=== PATIENT | male | born 2000 | race Two or more races ===

== ENCOUNTER → 2019-10-03 | Emergency (ER) | payer OTHER ==
[~2019-10-03] VITALS: Ht 167.6 cm; Wt 77.1 kg
[~2019-10-03] MED LIST: INTESTINEX680 M1 PO; LEVSIN/SL0.125 MG SL; ZOFRAN4 MG PO
== END | disposition home or self-care (01) ==
LOC: ER 00:56
DX: K52.9 Noninfective gastroenteritis and colitis, unspecified (principal)

== ENCOUNTER 2021-09-17 08:59 | Emergency (ER) | payer OTHER ==
[~2021-09-17] VITALS: Ht 165.1 cm; Wt 79.4 kg
== END 2021-09-17 12:39 | disposition home or self-care (01) ==
LOC: ER 08:59
DX: R07.89 Other chest pain (principal)

== ENCOUNTER 2022-06-23 19:48 | Emergency (ER) | payer OTHER ==
[~2022-06-23] VITALS: Ht 165.1 cm; Wt 81.6 kg
== END 2022-06-23 20:38 | disposition home or self-care (01) ==
LOC: ER 19:48
DX: S60.572A Other superficial bite of hand of left hand, initial encounter (principal); W55.01XA Bitten by cat, initial encounter; Y93.89 Activity, other specified; Y92.89 Other specified places as the place of occurrence of the external cause; Y99.9 Unspecified external cause status; M79.642 Pain in left hand

== ENCOUNTER 2023-11-24 05:19 | Emergency (ER) | payer OTHER ==
[~2023-11-24] VITALS: Ht 167.6 cm; Wt 81.6 kg
[2023-11-24 07:50] LABS: HEMATOCRIT 47.1 % (39.0-48.0); HEMOGLOBIN 15.9 g/dL (13-16.00); MEAN CELL VOLUME 85.5 fL (80.0-100.00); MEAN CORPUSCULAR HEMOGLOBIN 28.9 pg (27.00-32.0); MEAN CORPUSCULAR HGB CONC 33.8 g/dl (32.0-36.0); PLATELET COUNT 243 K/uL (150-450); RED CELL DISTRIBUTION WIDTH 14.1 % (11.5-14.5)
[2023-11-24 08:08] LABS: CALCIUM 9.7 mg/dL (8.5-10.1); CREATININE SERUM 1.16 mg/dL (0.70-1.30); GFR 76.71; POTASSIUM 3.97 mEq/L (3.5-5.1)
== END 2023-11-24 11:17 | disposition home or self-care (01) ==
LOC: ER 05:19
PROVIDERS: General Practice
DX: A05.9 Bacterial foodborne intoxication, unspecified (principal)